=== PATIENT | male | born 1970 | race Caucasian/White ===

== ENCOUNTER 2024-11-19 12:22 | Observation (INO) | payer BC ==
[2024-11-19] VITALS (17 sets, daily range): BP systolic 94–133; BP diastolic 43–89
[~2024-11-19] VITALS: Ht 198.1 cm; Wt 122.0 kg
[2024-11-19 13:21] LABS: BASO% 0.5 % (0-3); EOS% 2.2 % (0-8); HEMOGLOBIN 12.2 g/dl (14.0-18.0); IMMATURE GRANULOCYTES 0.2 % (0.0-5.0); LYMPH% 16.6 % (15-41); MEAN CELL VOLUME 74.6 fL CALC (80.0-100.0); MEAN CORPUSCULAR HGB 23.3 pG CALC (26.0-32.0); MEAN CORPUSCULAR HGB CONC 31.3 g/dL CAL (32.0-36.0); MONO% 2.2 % (2-13); NEUT# 4.64 thou/uL (1.82-7.42); NEUT% 78.3 % (42-76); RED BLOOD COUNT 5.23 mill/uL (4.70-6.10)
[2024-11-19 13:31] LABS: ALBUMIN 3.9 g/dL (3.2-5.0); BILIRUBIN, TOTAL 0.5 mg/dL (0.2-1.3); CREATININE 0.8 mg/dL (0.7-1.3); MAGNESIUM 2.3 mg/dL (1.6-2.3); POTASSIUM 4.3 mmol/l (3.5-5.1); TOTAL PROTEIN 6.7 g/dL (6.3-8.2)
[2024-11-19 14:00] LABS: TSH, 3RD GENERATION 1.68 uIU/mL (0.47 - 4.68)
[2024-11-19 14:32] LABS: URINE BILIRUBIN - DIPSTICK Negative (NEGATIVE); URINE BLOOD DIPSTICK Negative (NEGATIVE); URINE COLOR Yellow; URINE EPITHELIAL CELLS FEW EPI/hpf (0-FEW); URINE GLUCOSE - DIPSTICK 100 mg/dL (NEGATIVE); URINE KETONE Trace mg/dL (NEGATIVE); URINE LEUK ESTERASE Negative (NEGATIVE); URINE MUCUS MODERATE hpf (NONE-FEW); URINE NITRITE - DIPSTICK Negative (Negative); URINE PH 5.5 (4.5-8.0); URINE PROTEIN - DIPSTICK 100 mg/dL (NEG-TRACE); URINE SPECIFIC GRAVITY 1.025; URINE UROBILINOGEN - DIPSTICK 0.2 E.U./dL (0.2)
[2024-11-19] MEDS ORDERED: ACETAMINOPHEN 325 MG/TAB PO PRN (14:50)
[2024-11-19] MEDS ORDERED: LACTATED RINGER'S 1,000 ML IV PRN (14:50)
[2024-11-19] MEDS ORDERED: Polyethylene Glycol 3350 17 GM/PKT PO PRN (14:50)
[2024-11-19] MEDS ORDERED: ONDANSETRON 4 MG/TAB ODT SL PRN (14:50)
[2024-11-19] MEDS ORDERED: GADOPICLENOL (VUEWAY) 0.5 MM/ML 3.75MM/7.5ML VIAL IV ONE (14:55)
[2024-11-19] MEDS ORDERED: SODIUM CHLORIDE 0.9% 1,000 ML IV ONE (14:55)
[2024-11-19] MEDS ORDERED: ELIQUIS5 MG PO (15:01)
[2024-11-19] MEDS ORDERED: PROTONIX40 M2 PO (15:01)
[2024-11-19] MEDS ORDERED: LOSARTAN POTASS50 MG PO (15:01)
[2024-11-19] MEDS ORDERED: METOPROLOL100 M1 PO (15:02)
[2024-11-19] MEDS ORDERED: ZOFRAN4 MG/TAB PO (15:03)
[2024-11-19] MEDS ORDERED: INSULIN LISPRO 100 UNITS/ML ML SC SCH (17:00)
[2024-11-20 04:49] VITALS: BP 134/82
[2024-11-20 05:44] LABS: BASO% 0.2 % (0-3); EOS% 1.6 % (0-8); HEMATOCRIT 34.8 % (39.0-50.0); LYMPH% 21.8 % (15-41); MEAN CELL VOLUME 74.7 fL CALC (80.0-100.0); MEAN CORPUSCULAR HGB 23.6 pG CALC (26.0-32.0); MEAN CORPUSCULAR HGB CONC 31.6 g/dL CAL (32.0-36.0); MONO% 2.8 % (2-13); NEUT# 3.69 thou/uL (1.82-7.42); NEUT% 73.6 % (42-76); RED BLOOD COUNT 4.66 mill/uL (4.70-6.10); RED CELL DISTRI WIDTH 14.1 % (11.5-15.5)
[2024-11-20 05:49] LABS: ALBUMIN 3.5 g/dL (3.2-5.0); BILIRUBIN, TOTAL 0.4 mg/dL (0.2-1.3); CREATININE 0.6 mg/dL (0.7-1.3); TOTAL PROTEIN 6.5 g/dL (6.3-8.2)
[2024-11-20 06:45] VITALS: BP 141/82
[2024-11-20 10:50] VITALS: BP 156/94
== END 2024-11-20 14:17 | disposition home or self-care (01) | DRG 312 ==
LOC: ED 12:22 → ED-I 14:40 → ED 14:55 → MS2 14:56
PROVIDERS: Family Medicine; ADMIT Internal Medicine; ATTEND Internal Medicine
DX: R55 Syncope and collapse (principal); C18.9 Malignant neoplasm of colon, unspecified; C22.9 Malignant neoplasm of liver, not specified as primary or secondary; D64.9 Anemia, unspecified; E11.65 Type 2 diabetes mellitus with hyperglycemia; I11.0 Hypertensive heart disease with heart failure; I50.9 Heart failure, unspecified; K21.9 Gastro-esophageal reflux disease without esophagitis; Z86.718 Personal history of other venous thrombosis and embolism; Z79.60 Long term (current) use of unspecified immunomodulators and immunosuppressants; Z79.01 Long term (current) use of anticoagulants; Z93.3 Colostomy status; Z95.828 Presence of other vascular implants and grafts
CPT/HCPCS: A9573; A9579; G0378